=== PATIENT | male | born 1980 | race American Indian/Alaskan Native ===

== ENCOUNTER 2017-12-30 03:13 | Emergency (ER) | payer SELFPAY ==
[2017-12-30 03:25] VITALS: RESP 17
[2017-12-30] MEDS ORDERED: cefTRIAXone (Rocephin) 250 mg Inj IM STA (04:08)
--- NOTE | 2017-12-30 04:10 | ED PDOC ---
Arrival/HPI - General Chief Complaint: Male Genitourinary Time Seen by Provider: 12/30/17 03:34 Historian: Patient - History of Present Illness Narrative History of Present Illness (Text): 12/30/17 04:09 A 37 year old male, with no significant past medical history, presents to the emergency department requesting to be tested for syphyllis and chlamydia. He states that his girlfriend was treated for chlamydia 1 week ago, and about 2-3 days ago he began to develop clear penile discharge. The patient denies fevers, chills, headache, dizziness, chest pain, shortness of breath, dyspnea on exertion, cough, abdominal pain, nausea, vomiting, diarrhea, back pain, neck pain, urinary/bowel changes, or any other complaint. Time/Duration: Other (2-3 days) Symptom Onset: Gradual Symptom Course: Unchanged Activities at Onset: Rest, Light Context: Home Past Medical History - Provider Review Nursing Documentation Reviewed: Yes - Psychiatric Hx Substance Use: No Family/Social History - Physician Review Nursing Documentation Reviewed: Yes Family/Social History: No Known Family HX Smoking Status: Never Smoked Hx Alcohol Use: Yes Frequency of alcohol use: Socially Hx Substance Use: No Allergies/Home Meds Allergies/Adverse Reactions: Allergies No Known Allergies Allergy (Verified 12/30/17 03:22) Home Medications: Home Meds Medication Instructions Recorded Confirmed No Known Home Med 12/30/17 12/30/17 Review of Systems - Physician Review All systems were reviewed & negative as marked: Yes - Review of Systems Constitutional: absent: Fevers, Night Sweats Respiratory: absent: SOB, Cough Cardiovascular: absent: Chest Pain, SHIN Gastrointestinal: absent: Abdominal Pain, Stool Changes, Diarrhea, Nausea, Vomiting Genitourinary Male: Other (Clear penile discharge). absent: Urinary Output Changes Musculoskeletal: absent: Back Pain, Neck Pain Neurological: absent: Headache, Dizziness Physical Exam - Physical Exam Narrative Physical Exam (Text): 12/30/17 04:16: Physical Exam deferred to health department. Vital Signs Reviewed: Yes Vital Signs Temp Pulse Resp BP Pulse Ox 12/30/17 03:24 98.1 F 63 17 128/82 98 Temperature: Afebrile Blood Pressure: Normal Pulse: Regular Respiratory Rate: Normal Appearance: Positive for: Well-Appearing, Non-Toxic, Comfortable Pain Distress: None Mental Status: Positive for: Alert and Oriented X 3 Medical Decision Making ED Course and Treatment: 12/30/17 04:16 Impression: A 37 year old male presents to the emergency department requesting to be tested for syphilis and chlamydia. Plan: -- Reassess and disposition Progress Notes: 12/30/17 04:16: Patient to be transferred to the health department to be tested for HIV, syphilis, in the emergency department he only wants treatment for syphilis and chlamydia. Physical exam deferred to the health department. - Medication Orders Current Medication Orders: Discontinued Medications Azithromycin (Zithromax) 1,000 mg PO STAT STA PRN Reason: Protocol Stop: 12/30/17 04:09 Ceftriaxone Sodium (Rocephin) 250 mg IM STAT STA PRN Reason: Protocol Stop: 12/30/17 04:09 - Scribe Statement The provider has reviewed the documentation as recorded by the Vernibe Melvi Candelario Provider Scribe Attestation: All medical record entries made by the Scribe were at my direction and personally dictated by me. I have reviewed the chart and agree that the record accurately reflects my personal performance of the history, physical exam, medical decision making, and the department course for this patient. I have also personally directed, reviewed, and agree with the discharge instructions and disposition. Disposition/Present on Arrival - Present on Arrival Any Indicators Present on Arrival: No History of DVT/PE: No History of Uncontrolled Diabetes: No Urinary Catheter: No History of Decub. Ulcer: No History Surgical Site Infection Following: None - Disposition Have Diagnosis and Disposition been Completed?: Yes Diagnosis: Urethritis Disposition: HOME/ ROUTINE Disposition Time: 04:11 Patient Plan: Discharge Condition: GOOD Discharge Instructions (ExitCare): Urethritis (DC) Additional Instructions: Mr Pompa- Make certain that you get blood work done at the health department. You were treated for both chlamydia and gonorrhea here tonight. [place]- Dr. Sridhar Cox Forms: [employer] (Per[place]ian)
[2017-12-30 04:54] VITALS: BP 130/82; PULSE 78; TEMP 98; O2SAT 100
== END 2017-12-30 04:50 | disposition home or self-care (01) ==
LOC: ED 03:13
DX: N34.2 Other urethritis (principal)
CPT/HCPCS: 96372; 99283; J0696